=== PATIENT | female | born 1960 | race Caucasian/White ===

== ENCOUNTER 2017-03-27 13:29 | Emergency (ER) | payer BC, OTHER ==
[2017-03-27 13:36] VITALS: BP 135/92; PULSE 83; RESP 16; TEMP 98.1; O2SAT 97
--- NOTE | 2017-03-27 13:53 | EDPHY ---
H & P Time Seen by Provider: 03/27/17 13:45 HPI/ROS: CHIEF COMPLAINT: Left foot wound HISTORY OF PRESENT ILLNESS: Patient is a 57-year-old female who presents emergency department with ongoing left foot wound. Approximately 1 month ago she cut her foot while in the garden. This was a significant laceration. The wound was repaired at [facility]. She had the sutures out a week later. She has been self treating for the past 3 weeks. There has been a an ongoing wound on dorsum of her left foot. This is increasing in size. There is mild surrounding redness. She has moderate discomfort and tenderness to palpation per report. She has had no fevers or chills. She has been self treating "with amoxicillin from [place]." She has a friend who was a wound care nurse. Her friend is been helping her take care of the wound with creams. Today she saw the wound told her to come to the emergency department for further evaluation. REVIEW OF SYSTEMS: My complete review of systems is negative except as mentioned in the HPI. Past Medical/Surgical History: Includes knee surgery. Patient denies diabetes. She has no peripheral vascular disease. Social history: The patient smokes Smoking Status: Current every day smoker Physical Exam: Vitals noted. Afebrile GENERAL: No acute distress, alert. HEENT: Eyes normal to inspection. RESPIRATORY: No respiratory distress. CVS: Well perfused. SKIN: Normal color, no rash, warm, dry. No pallor. EXTREMITIES: Patient's left foot has a substantial 3 inch in diameter wound. This is a fairly deep ulceration. There is notable black discoloration to the central aspect of wound. The margins are pink and mildly tender to palpation. There is no pus. There is minimal erythema surrounding wound. There is no streaking up the foot or ankle. No discoloration to the leg. NEURO/PSYCH: Alert and oriented, normal mood and affect, normal motor sensory exam. Constitutional: Initial Vital Signs Temperature (C) 36.7 C 03/27/17 13:32 Heart Rate 83 03/27/17 13:32 Respiratory Rate 16 03/27/17 13:32 Blood Pressure 135/92 H 03/27/17 13:32 O2 Sat (%) 97 03/27/17 13:32 O2 Delivery Mode Room Air Allergies/Adverse Reactions: codeine Allergy (Verified 03/27/17 13:36) Home Medications: Medication Instructions Recorded AMOXICILLIN 03/27/17 Cephalexin [Keflex (*)] 500 mg PO QID 10 Days 03/27/17 Garcinia Cambogia Tablet 03/27/17 Neem 03/27/17 Probiotic 03/27/17 Skin Vitamin 03/27/17 Sulfamethox/Tmp 800/160 mg 1 tab PO BID #20 tab 03/27/17 [Bactrim Ds] Medical Decision Making - Diagnostics Imaging Results: Imaging Impressions Foot X-Ray 03/27/17 13:49 Impression: Negative left foot radiographs for fracture or bone resorption. ED Course/Re-evaluation: In the emergency department I discussed possible etiologies with the patient. I answered all her questions. An x-ray of the left foot was ordered. Left foot x-ray:. Please refer the dictated report. No free gas or air. No bony irregularity. No visible foreign body. I discussed the results with the patient. I answered all her questions. Patient has a swab performed prior to leaving. Of note, the wound is dry. Culture is pending. I gave the patient warnings. She was given instructions for follow-up with Infectious Disease as well as the wound care clinic. Differential Diagnosis: Patient is not appear septic or toxic. She does have poorly healing left foot wound. This could represent some necrotic tissue. However, surrounding tissue appears pink, warm and well-appearing. I consider osteomyelitis. She does not appear septic or toxic. I have also considered MRSA. Departure - Departure Disposition: Home, Routine, Self-Care Clinical Impression: Wound, open, foot Qualifiers: Encounter type: initial encounter Laterality: left Qualified Code(s): S91.302A - Unspecified open wound, left foot, initial encounter Condition: Fair Instructions: Laceration (ED), Acute Wounds (ED) Additional Instructions: You been given new antibiotic. Discontinue the antibiotics you were previously taking. Take both new antibiotics as directed. You need close follow-up with Infectious Disease. You need to call Wednesday morning to make the appointment. Follow up with your primary care physician as well. Referrals: Candis Lockwood MD [Primary Care Provider] - 5-7 days, call for appt. Gregorio Lal MD [Medical Doctor] - 2-3 days without fail [facility] [Clinic] - 2-3 days without fail Prescriptions: Cephalexin [Keflex (*)] 500 mg PO QID 10 Days Sulfamethox/Tmp 800/160 mg [Bactrim Ds] 1 tab PO BID #20 tab
== END 2017-03-27 15:06 | disposition home or self-care (01) ==
LOC: CED 13:29
DX: S91.302A Unspecified open wound, left foot, initial encounter (principal); F17.200 Nicotine dependence, unspecified, uncomplicated; W45.8XXA Other foreign body or object entering through skin, initial encounter; Y92.007 Garden or yard of unspecified non-institutional (private) residence as the place of occurrence of the external cause
CPT/HCPCS: 73620-PO